=== PATIENT | female | born 1995 | race Two or more races ===

== ENCOUNTER 2016-09-12 21:41 | Emergency (ER) | payer MEDICAID | END 2016-09-13 | disposition home or self-care (01) | LOC: D.ER 21:41 | DX: S16.1XXA Strain of muscle, fascia and tendon at neck level, initial encounter (principal); V43.52XA Car driver injured in collision with other type car in traffic accident, initial encounter; Y93.89 Activity, other specified; Y92.410 Unspecified street and highway as the place of occurrence of the external cause ==

== ENCOUNTER 2016-09-18 20:26 | Emergency (ER) | payer MEDICAID ==
[2016-09-18 22:44] LABS: APPEARANCE CLOUDY (CLEAR); COLOR STRAW (YELLOW); HCG URINE NEGATIVE (NEGATIVE)
[2016-09-18 22:45] LABS: BACTERIA MODERATE /hpf (NONE SEEN); BILIRUBIN NEGATIVE (NEGATIVE); GLUCOSE NEGATIVE (NEGATIVE); KETONE NEGATIVE (NEGATIVE); LEUKOCYTE ESTERASE 2+ (NEGATIVE); MUCUS <1+ /lpf (NONE SEEN); NITRITE NEGATIVE (NEGATIVE); PROTEIN NEGATIVE (NEGATIVE); UROBILINOGEN NORMAL (NORMAL); WHITE CELLS - URINE >50 /hpf (0-5)
== END 2016-09-18 23:00 | disposition home or self-care (01) ==
LOC: D.ER 20:26
PROVIDERS: Emergency Medicine
DX: M54.5 Low back pain (principal); F17.200 Nicotine dependence, unspecified, uncomplicated

== ENCOUNTER 2016-11-22 01:04 | Emergency (ER) | payer MEDICAID ==
[2016-11-22 03:16] LABS: BASOPHILS 0.8 % (0-2); EOSINOPHILS 2.4 % (0-7); HEMATOCRIT 43.2 % (36.0-48.0); IMMATURE GRANULOCYTES 0.2 % (0-5); LYMPHOCYTES 30.2 % (15-50); MCH 30.9 pg (26.0-34.0); MCHC 34.7 g/dL (31.0-37.0); MCV 89.1 fL (80.0-100.0); MEAN PLATELET VOLUME 9.6 fL (7.4-10.4); MONOCYTES 10.3 % (2-11); NEUTROPHILS 56.1 % (40-80); PLATELET COUNT 342 10x3/uL (130-400); RBC 4.85 10x6/uL (4.00-5.40); RDW 12.6 % (11.5-14.5); WBC 11.8 10x3/uL (4.8-10.8)
[2016-11-22 03:22] LABS: CALC OSMOLALITY 280 mosm/kg (275-300); CALCIUM 9.4 mg/dL (8.5-10.1); CARBON DIOXIDE 27.6 mmol/L (21.0-32.0); CHLORIDE - SERUM 104 mmol/L (98-107); CREATININE - SERUM 0.8 mg/dL (0.6-1.3); GLUCOSE 116 mg/dL (74-106); POTASSIUM - SERUM 3.5 mmol/L (3.5-5.1); SODIUM 141 mmol/L (136-145); UREA NITROGEN 9 mg/dL (7-18); eGFR NON AFRICAN AMERICAN > 90 mL/min (90-120)
== END 2016-11-22 03:57 | disposition home or self-care (01) ==
LOC: D.ER 01:04
PROVIDERS: Family Medicine
DX: J06.9 Acute upper respiratory infection, unspecified (principal); R04.0 Epistaxis

== ENCOUNTER 2016-12-28 20:20 | Emergency (ER) | payer MEDICAID ==
[2016-12-28 22:25] LABS: BASOPHILS 0.9 % (0-2); EOSINOPHILS 2.7 % (0-7); HEMATOCRIT 39.8 % (36.0-48.0); HEMOGLOBIN 13.8 g/dL (12-16); IMMATURE GRANULOCYTES 0.1 % (0-5); LYMPHOCYTES 28.1 % (15-50); MCHC 34.7 g/dL (31.0-37.0); MCV 89.4 fL (80.0-100.0); MEAN PLATELET VOLUME 9.4 fL (7.4-10.4); MONOCYTES 7.7 % (2-11); NEUTROPHILS 60.5 % (40-80); PLATELET COUNT 345 10x3/uL (130-400); RBC 4.45 10x6/uL (4.00-5.40); RDW 12.4 % (11.5-14.5); WBC 12.4 10x3/uL (4.8-10.8)
[2016-12-28 22:42] LABS: ALBUMIN 3.7 g/dL (3.4-5.0); ALKALINE PHOSPHATASE 89 U/L (46-116); ALT (SGPT) 21 U/L (10-68); CALC OSMOLALITY 277 mosm/kg (275-300); CALCIUM 8.5 mg/dL (8.5-10.1); CARBON DIOXIDE 27.5 mmol/L (21.0-32.0); CHLORIDE - SERUM 104 mmol/L (98-107); CREATININE - SERUM 0.7 mg/dL (0.6-1.3); GLUCOSE 99 mg/dL (74-106); POTASSIUM - SERUM 3.4 mmol/L (3.5-5.1); PROTEIN - SERUM 7.1 g/dL (6.4-8.2); SODIUM 140 mmol/L (136-145); UREA NITROGEN 9 mg/dL (7-18); eGFR NON AFRICAN AMERICAN > 90 mL/min (90-120)
[2016-12-28 22:43] LABS: HCG SERUM NEGATIVE (NEGATIVE)
[2016-12-29 00:06] LABS: APPEARANCE HAZY (CLEAR); BILIRUBIN NEGATIVE (NEGATIVE); COLOR STRAW (YELLOW); GLUCOSE NEGATIVE (NEGATIVE); KETONE NEGATIVE (NEGATIVE); LEUKOCYTE ESTERASE 2+ (NEGATIVE); NITRITE NEGATIVE (NEGATIVE); PROTEIN TRACE mg/dL (NEGATIVE); SPECIFIC GRAVITY 1.005 (1.005-1.020); UROBILINOGEN NORMAL (NORMAL)
[2016-12-29 00:07] LABS: BACTERIA MODERATE /hpf (NONE SEEN); EPITHELIAL CELLS 0-5 /hpf (0-5); RED CELLS - URINE 0-5 /hpf (0-5)
== END 2016-12-29 00:45 | disposition home or self-care (01) ==
LOC: D.ER 20:20
PROVIDERS: Emergency Medicine
DX: N39.0 Urinary tract infection, site not specified (principal); F17.200 Nicotine dependence, unspecified, uncomplicated

== ENCOUNTER 2018-12-29 08:51 | Emergency (ER) | payer SELFPAY ==
[~2018-12-29] VITALS: Ht 168.9 cm; Wt 84.1 kg
[2018-12-29 08:58] VITALS: BP 125/83; Ht 168.9 cm; Wt 84.1 kg
[2018-12-29 09:25] LABS: BASOPHILS 2.2 % (0-2); EOSINOPHILS 7.3 % (0-7); HEMATOCRIT 44.1 % (36.0-48.0); HEMOGLOBIN 15.9 g/dL (12-16); IMMATURE GRANULOCYTES 0.4 % (0-5); LYMPHOCYTES 23.7 % (15-50); MCH 31.5 pg (26.0-34.0); MCHC 36.1 g/dL (31.0-37.0); MCV 87.3 fL (80.0-100.0); MEAN PLATELET VOLUME 9.2 fL (7.4-10.4); MONOCYTES 8.5 % (2-11); NEUTROPHILS 57.9 % (40-80); PLATELET COUNT 321 10x3/uL (130-400); RBC 5.05 10x6/uL (4.00-5.40); RDW 12.9 % (11.5-14.5); WBC 11.2 10x3/uL (4.8-10.8)
[2018-12-29 09:37] LABS: HCG SERUM NEGATIVE (NEGATIVE)
[2018-12-29 09:44] LABS: ALBUMIN 4.1 g/dL (3.4-5.0); ALKALINE PHOSPHATASE 98 U/L (46-116); ALT (SGPT) 41 U/L (10-68); AMYLASE - SERUM 33 U/L (25-115); BILIRUBIN - TOTAL 0.29 mg/dL (0.2-1.3); CALC OSMOLALITY 274 mosm/kg (275-300); CALCIUM 8.6 mg/dL (8.5-10.1); CARBON DIOXIDE 25.8 mmol/L (21.0-32.0); CHLORIDE - SERUM 104 mmol/L (98-107); CREATININE - SERUM 0.8 mg/dL (0.6-1.3); GLUCOSE 113 mg/dL (74-106); LIPASE 113 U/L (73-393); POTASSIUM - SERUM 3.4 mmol/L (3.5-5.1); PROTEIN - SERUM 8.2 g/dL (6.4-8.2); SODIUM 138 mmol/L (136-145); UREA NITROGEN 8 mg/dL (7-18); eGFR NON AFRICAN AMERICAN > 90 mL/min (90-120)
[2018-12-29 12:31] LABS: APPEARANCE CLOUDY (CLEAR); BILIRUBIN NEGATIVE (NEGATIVE); COLOR YELLOW (YELLOW); GLUCOSE NEGATIVE (NEGATIVE); KETONE NEGATIVE (NEGATIVE); NITRITE NEGATIVE (NEGATIVE); PROTEIN TRACE mg/dL (NEGATIVE); SPECIFIC GRAVITY 1.015 (1.005-1.020); UROBILINOGEN NORMAL (NORMAL)
[2018-12-29 12:34] LABS: BACTERIA MANY /hpf (NONE SEEN); EPITHELIAL CELLS 0-5 /hpf (0-5); MUCUS <1+ /lpf (NONE SEEN)
[2018-12-29] MEDS ORDERED: BACTRIM 400-801 TAB PO (12:38)
== END 2018-12-29 13:13 | disposition home or self-care (01) ==
LOC: D.ER 08:51
PROVIDERS: Family Medicine
DX: N39.0 Urinary tract infection, site not specified (principal); K80.20 Calculus of gallbladder without cholecystitis without obstruction

== ENCOUNTER 2019-03-15 23:15 | Emergency (ER) | payer SELFPAY ==
[~2019-03-15] VITALS: Ht 168.9 cm; Wt 84.1 kg
[~2019-03-15 23:15] MED LIST: BACTRIM 400-801 TAB PO
[2019-03-15 23:20] VITALS: Ht 168.9 cm; Wt 84.1 kg
[2019-03-15] MEDS ORDERED: AMOXICILLIN500 M1 PO (23:35)
[2019-03-15] MEDS ORDERED: ZITHROMAX500 MG PO (23:35)
[2019-03-15] MEDS ORDERED: MUCINEX DM ER1 EAC1 PO (23:35)
[2019-03-16 00:04] LABS: HCG URINE NEGATIVE (NEGATIVE)
[2019-03-16 00:05] LABS: APPEARANCE CLEAR (CLEAR); BILIRUBIN NEGATIVE (NEGATIVE); COLOR YELLOW (YELLOW); GLUCOSE NEGATIVE (NEGATIVE); KETONE NEGATIVE (NEGATIVE); NITRITE NEGATIVE (NEGATIVE); PROTEIN NEGATIVE (NEGATIVE); SPECIFIC GRAVITY 1.025 (1.005-1.020); UROBILINOGEN NORMAL (NORMAL)
[2019-03-16 00:06] LABS: BACTERIA FEW /hpf (NEGATIVE); EPITHELIAL CELLS 0-5 /hpf (0-5); RED CELLS - URINE 0-5 /hpf (0-5); WHITE CELLS - URINE 0-5 /hpf (NEGATIVE)
[2019-03-16 00:10] VITALS: BP 129/70
== END 2019-03-16 00:11 | disposition home or self-care (01) ==
LOC: D.ER 23:15
PROVIDERS: Family Medicine
DX: J40 Bronchitis, not specified as acute or chronic (principal); F17.210 Nicotine dependence, cigarettes, uncomplicated

== ENCOUNTER 2019-06-08 19:23 | Inpatient (IN) | payer SELFPAY ==
[~2019-06-08] VITALS: Ht 168.9 cm; Wt 88.6 kg
--- NOTE | ~2019-06-08 | OP ---
PATIENT NAME: VIGNESH JENKINS MEDICAL RECORD: [id number] :[birth year] LOCATION:D.MS [id number] ADMISSION DATE:06/09/19 SURGEON: GABBY RUSSO MD DATE OF OPERATION: 06/11/2019 PREOPERATIVE DIAGNOSIS: Symptomatic gallstones. POSTOPERATIVE DIAGNOSES: Symptomatic gallstones with hepatomegaly. PROCEDURES: 1. Laparoscopic cholecystectomy. 2. Intraoperative cholangiography without immediate surgeon interpretation. 3. A 14-gauge core needle liver biopsy. SURGEON: Gabby Russo MD BUS PERSON DISHWASHER: None. BLOOD LOSS: Minimal. ANESTHESIA: General. COMPLICATIONS: None. The risks, possible complications and alternatives to the procedure were explained to the patient. She elects to proceed. Discussion specifically included, but was not limited to, bleeding requiring emergency reoperation, infection, intestinal injury, common bile duct injury. OPERATIVE COURSE: The patient was conveyed to the operating room electively on 06/11/2019. General anesthesia was induced by the anesthesia staff. The abdomen was sterilely prepped and draped. A skin incision was accomplished in the left upper quadrant. Veress needle was inserted through the skin incision into the peritoneal cavity. CO2 insufflation was begun. Once a sufficient pneumoperitoneum had been achieved, a 5-mm trocar was inserted through an incision in the epigastrium. Another 5-mm trocar was inserted far laterally in the right upper quadrant. A 12-mm trocar was inserted through an incision at the umbilicus. During insertion of the Veress needle and all trocars, there appeared to have been no injury to the bowels, any intraperitoneal or retroperitoneal structures. An abdominal survey was undertaken. The liver appeared enlarged. The indication for liver biopsy was hepatomegaly. Under laparoscopic guidance, I percutaneously accessed the right upper quadrant utilizing a 14-gauge core biopsy device. Cores were obtained over the convexity of the liver. The biopsy sites were made hemostatic with electrocautery. I then grasped the gallbladder. I advanced a cholangiogram trocar. I punctured the fundus of the gallbladder. I aspirated bile. I then injected dye. Static cholangiographic images were obtained. These were sent to the radiologist for interpretation. I aspirated bile and removed the cholangiogram trocar. The gallbladder was grasped and retracted cephalad. The infundibulum was grasped and retracted laterally. Blunt dissection was begun in the triangle of Calot. One cystic artery and one cystic duct were identified. These were OPERATIVE REPORT [id number] VIGNESH JENKINS clipped multiply and divided between clips. The gallbladder was then excised from its bed in the liver. This was placed within a bag retrieval device and was withdrawn through the umbilical fascia defect. A 12-mm trocar was replaced and the abdomen reinsufflated. I irrigated and aspirated in the right upper quadrant. There was no bleeding even at low pressure of 8. The 12-mm trocar was removed. Utilizing the Ata-Erin suture closure device and 0 Vicryl sutures, I closed the fascia at the umbilicus. All trocars were removed and the abdomen desufflated. The skin incision around the trocars were infiltrated with Marcaine without epinephrine. The skin at the umbilicus was closed with interrupted 4-0 Vicryl Rapide sutures. The other skin incisions were closed with single intracuticular 3-0 Vicryls. Benzoin and Steri-Strips were applied. The patient was then extubated and conveyed to post-anesthesia care unit where she was in stable condition. She will be kept overnight and I will plan to dismiss her home in the morning. TRANSINT:[id number] Voice Confirmation ID: [id number] DOCUMENT ID: [id number] GABBY RUSSO MD CC: CHAITANYA CHAVEZ MD [id number] DICTATION DATE: 06/12/1945 PSYCHOMETRIC EXAMINER: 06/12/[address] [facility] [address] [place] [address]
[~2019-06-08 19:23] MED LIST changes: +AMOXICILLIN500 M1 PO; +MUCINEX DM ER1 EAC1 PO; +ZITHROMAX500 MG PO
[2019-06-08 20:07] LABS: BASOPHILS 1.4 % (0-2); EOSINOPHILS 7.9 % (0-7); HEMATOCRIT 43.1 % (36.0-48.0); IMMATURE GRANULOCYTES 0.2 % (0-5); LYMPHOCYTES 28.7 % (15-50); MCH 31.1 pg (26.0-34.0); MCHC 34.8 g/dL (31.0-37.0); MCV 89.2 fL (80.0-100.0); MEAN PLATELET VOLUME 9.1 fL (7.4-10.4); MONOCYTES 7.6 % (2-11); NEUTROPHILS 54.2 % (40-80); PLATELET COUNT 303 10x3/uL (130-400); RBC 4.83 10x6/uL (4.00-5.40); RDW 12.6 % (11.5-14.5); WBC 10.9 10x3/uL (4.8-10.8)
[2019-06-08 20:14] LABS: CALC OSMOLALITY 276 mosm/kg (275-300); CALCIUM 8.9 mg/dL (8.5-10.1); CARBON DIOXIDE 25.8 mmol/L (21.0-32.0); CHLORIDE - SERUM 103 mmol/L (98-107); CREATININE - SERUM 0.7 mg/dL (0.6-1.3); GLUCOSE 104 mg/dL (74-106); POTASSIUM - SERUM 3.8 mmol/L (3.5-5.1); SODIUM 139 mmol/L (136-145); UREA NITROGEN 11 mg/dL (7-18); eGFR NON AFRICAN AMERICAN > 90 mL/min (90-120)
[2019-06-08 20:22] LABS: ALKALINE PHOSPHATASE 108 U/L (46-116); ALT (SGPT) 35 U/L (10-68); AMYLASE - SERUM 35 U/L (25-115); BILIRUBIN - TOTAL 0.17 mg/dL (0.2-1.3); LIPASE 123 U/L (73-393); PROTEIN - SERUM 7.5 g/dL (6.4-8.2); TROPONIN-I < 0.017 ng/mL (0.000-0.060)
[2019-06-08 23:07] LABS: APPEARANCE CLEAR (CLEAR); BILIRUBIN NEGATIVE (NEGATIVE); COLOR YELLOW (YELLOW); GLUCOSE NEGATIVE (NEGATIVE); KETONE NEGATIVE (NEGATIVE); NITRITE NEGATIVE (NEGATIVE); PROTEIN NEGATIVE (NEGATIVE); UROBILINOGEN NORMAL (NORMAL)
[2019-06-08 23:10] LABS: HCG URINE NEGATIVE (NEGATIVE)
--- NOTE | 2019-06-09 02:00 | NUR ---
ARRIVED TO ROOM 2223 VIA WHEELCHAIR AND HOSPITAL STAFF. UP AD ILIANA. AMBULATES WITHOUT DIFFICULTY. COMPLAINTS OF SLIGHT PAIN TO ABDOMEN NOTED. ABLE TO SUBDUE PAIN WITH REST. ON CLEAR LIQUID DIET AT THIS TIME. IV TO RIGHT AC IS PATENT WITH FLUIDS INFUSING VIA PUMP PER ORDERS. ALERT AND ORIENTED. ABLE TO VOICE ALL NEEDS.
[2019-06-09 02:34] VITALS: BP 110/56; BMI 31.0
[2019-06-09 04:00] VITALS: BP 110/56
[2019-06-09 08:36] VITALS: BP 110/48
[2019-06-09 09:20] LABS: BASOPHILS 1.3 % (0-2); EOSINOPHILS 7.2 % (0-7); HEMOGLOBIN 14.8 g/dL (12-16); IMMATURE GRANULOCYTES 0.3 % (0-5); LYMPHOCYTES 33.3 % (15-50); MCH 30.8 pg (26.0-34.0); MCHC 34.4 g/dL (31.0-37.0); MCV 89.4 fL (80.0-100.0); MEAN PLATELET VOLUME 9.2 fL (7.4-10.4); NEUTROPHILS 49.9 % (40-80); PLATELET COUNT 279 10x3/uL (130-400); RBC 4.81 10x6/uL (4.00-5.40); RDW 12.8 % (11.5-14.5); WBC 10.3 10x3/uL (4.8-10.8)
[2019-06-09 09:28] LABS: CALC OSMOLALITY 278 mosm/kg (275-300); CALCIUM 8.4 mg/dL (8.5-10.1); CARBON DIOXIDE 23.4 mmol/L (21.0-32.0); CHLORIDE - SERUM 106 mmol/L (98-107); CREATININE - SERUM 0.7 mg/dL (0.6-1.3); GLUCOSE 135 mg/dL (74-106); POTASSIUM - SERUM 3.7 mmol/L (3.5-5.1); SODIUM 139 mmol/L (136-145); UREA NITROGEN 9 mg/dL (7-18); eGFR NON AFRICAN AMERICAN > 90 mL/min (90-120)
--- NOTE | 2019-06-09 10:36 | NUR ---
I have reviewed this patient and I concur with the Shift Assessment completed by the Licensed Practical Nurse today this shift.
--- NOTE | 2019-06-09 12:28 | NUR ---
PT MOTHER AT DESK WANTING TO SPEAK WITH NURSE PRACTITIONER AND DOCTOR, ADVISED THEY ARE STILL MAKING THEIR ROUNDS AND WILL BE IN PITA. PT MOTHER VERY UNDERSTANDING. CONTINUE WITH PLAN OF CARE
[2019-06-09 13:31] VITALS: BP 99/50
--- NOTE | 2019-06-09 19:15 | NUR ---
PATIENT ALERT AND ORIENTED. PATIENT HAS SEVERAL VISITORS IN ROOM. DENIES NEEDS AT THIS TIME. DENIES NAUSEA AND VOMITTING AT THIS TIME. DENIES NEEDS. HAS SALINE LOCKED IV TO THE RIGHT AC. VERBALIZES UNDERSTANDING OF NPO STATUS AT MIDNIGHT. CALL LIGHT IN REACH. CPOC.
[2019-06-09 20:00] VITALS: BP 100/61
--- NOTE | 2019-06-09 21:00 | NUR ---
FLUSHED IV. IV IS PATENT. DENIES FURTHER NEEDS.
[2019-06-10] VITALS: BP 113/78
--- NOTE | 2019-06-10 01:54 | NUR ---
RESTING WITH EYES CLOSED. UNLABORED RESPIRATIONS. CPOC.
--- NOTE | 2019-06-10 02:44 | NUR ---
I have reviewed this patient and I concur with the Shift Assessment completed by the Licensed Practical Nurse today this shift.
[2019-06-10 04:00] VITALS: BP 103/52
[2019-06-10 06:17] LABS: BASOPHILS 0.9 % (0-2); EOSINOPHILS 6.1 % (0-7); HEMATOCRIT 43.1 % (36.0-48.0); HEMOGLOBIN 14.8 g/dL (12-16); IMMATURE GRANULOCYTES 0.2 % (0-5); LYMPHOCYTES 31.1 % (15-50); MCH 30.6 pg (26.0-34.0); MCHC 34.3 g/dL (31.0-37.0); MCV 89.2 fL (80.0-100.0); MEAN PLATELET VOLUME 9.5 fL (7.4-10.4); MONOCYTES 7.2 % (2-11); NEUTROPHILS 54.5 % (40-80); PLATELET COUNT 294 10x3/uL (130-400); RBC 4.83 10x6/uL (4.00-5.40); RDW 12.6 % (11.5-14.5); WBC 11.2 10x3/uL (4.8-10.8)
[2019-06-10 06:48] LABS: CALC OSMOLALITY 280 mosm/kg (275-300); CALCIUM 8.6 mg/dL (8.5-10.1); CARBON DIOXIDE 25.1 mmol/L (21.0-32.0); CHLORIDE - SERUM 107 mmol/L (98-107); CREATININE - SERUM 0.6 mg/dL (0.6-1.3); GLUCOSE 93 mg/dL (74-106); POTASSIUM - SERUM 3.4 mmol/L (3.5-5.1); SODIUM 142 mmol/L (136-145); UREA NITROGEN 7 mg/dL (7-18); eGFR NON AFRICAN AMERICAN > 90 mL/min (90-120)
--- NOTE | 2019-06-10 07:43 | NUR ---
ALERT AND ORIENTED. LUNGS CLEAR BILATERALLY. HEART SOUNDS S1 AND S2 HEARD IN ALL GAVIN. BOWEL SOUNDS ACTIVE X 4. SKIN INTACT WITHOUT REDNESS. NPO FOR PIPIDA SCAN. STATES HUNGRY BUT DENIES NEEDS. BED LOW. CALL ODONNELL AND PERSONAL ITEMS IN REACH. WILL CONTINUE TO MONITOR.
--- NOTE | 2019-06-10 08:13 | NUR ---
PATIENT TAKEN FOR CT.
--- NOTE | 2019-06-10 10:25 | NUR ---
ONE TIME DOSE MORPHINE 2MG GIVEN DURING PIPIDA SCAN PER MD ORDER.
--- NOTE | 2019-06-10 11:57 | NUR ---
SPOKE WITH DR RUSSO WHO STATES OK TO PUT IN ORDER FOR LOW FAT DIET.
[2019-06-10 12:06] VITALS: BP 111/67
--- NOTE | 2019-06-10 13:28 | NUR ---
SITTING IN CHAIR AT BEDSIDE. MOM IN ROOM. DENIES NEEDS. WILL CONTINUE TO MONITOR.
--- NOTE | 2019-06-10 13:45 | NUR ---
IV SITE RED AND IRRITATED TO RIGHT AC. REMOVED PER PATIENT REQUEST. REQUESTING TO RESITE LATER TODAY.
--- NOTE | 2019-06-10 17:11 | NUR ---
SITTING IN CHAIR AT BEDSIDE. DENIES NEEDS. WILL CONTINUE TO MONITOR.
--- NOTE | 2019-06-10 18:06 | NUR ---
IV SITED TO LEFT HAND AFTER THREE ATTEMPTS BY TREVOR LICEA.
--- NOTE | 2019-06-10 19:05 | NUR ---
PATIENT IS UP AND WALKING AROUND. NO S/S OF DISTRESS. NO C/O AT THIS TIME. PATIENT HAS L HAND SALINE LOC FOR SURGERY TOMORROW. PATIENT IS HAVING A LAP HAYDEN TOMORROW. CONSENTS WERE CHECKED. CALL LIGHT IN PLACE. WILL CONTINUE TO MONITOR.
[2019-06-10 20:00] VITALS: BP 121/60
[2019-06-10 20:04] VITALS: Ht 168.9 cm; Wt 88.6 kg
[2019-06-11] VITALS: BP 109/60
--- NOTE | 2019-06-11 01:35 | NUR ---
PATIENT IV WAS TAKEN OUT BECAUSE "IT WAS BURNING REALLY BAD." ROMELIA RESITED IN THE L WRIST. PATENT. CALL LIGHT IN PLACE. WILL CONTINUE TO MONITOR.
--- NOTE | 2019-06-11 03:10 | NUR ---
I have reviewed this patient and I concur with the Shift Assessment completed by the Licensed Practical Nurse today this shift.
[2019-06-11 04:00] VITALS: BP 110/64
[2019-06-11 06:23] LABS: BASOPHILS 1.2 % (0-2); EOSINOPHILS 7.3 % (0-7); HEMATOCRIT 43.1 % (36.0-48.0); IMMATURE GRANULOCYTES 0.3 % (0-5); LYMPHOCYTES 30.7 % (15-50); MCH 31.1 pg (26.0-34.0); MCHC 34.8 g/dL (31.0-37.0); MCV 89.2 fL (80.0-100.0); MEAN PLATELET VOLUME 9.6 fL (7.4-10.4); MONOCYTES 8.8 % (2-11); NEUTROPHILS 51.7 % (40-80); PLATELET COUNT 314 10x3/uL (130-400); RBC 4.83 10x6/uL (4.00-5.40); RDW 12.6 % (11.5-14.5); WBC 11.2 10x3/uL (4.8-10.8)
[2019-06-11 06:30] LABS: CALC OSMOLALITY 278 mosm/kg (275-300); CALCIUM 8.7 mg/dL (8.5-10.1); CARBON DIOXIDE 25.1 mmol/L (21.0-32.0); CHLORIDE - SERUM 107 mmol/L (98-107); CREATININE - SERUM 0.6 mg/dL (0.6-1.3); GLUCOSE 97 mg/dL (74-106); POTASSIUM - SERUM 3.8 mmol/L (3.5-5.1); SODIUM 141 mmol/L (136-145); UREA NITROGEN 8 mg/dL (7-18); eGFR NON AFRICAN AMERICAN > 90 mL/min (90-120)
--- NOTE | 2019-06-11 07:01 | NUR ---
PT RESTING PEACEFULLY, BREATHS EVEN REUGLAR AND UNLABORED. NO SIGNS OR SYMPTOMS OF ACUTE DISTRESS AT THIS TIME. CL IN REACH, SRX2.
[2019-06-11 08:11] VITALS: BP 103/56
--- NOTE | 2019-06-11 10:01 | NUR ---
PT AWAKE AND ORIENTED, STATES NO PAIN AT THIS TIME. ANXIOUS TO HAVE URGERY OVER WITH. NO COMPALITNS/CONCERNS, ALL QUESTIONS ANSWERED TO THE BEST OF Delmy SANCHEZ. CL IN REACH, SRX2. NO FAMILY AT BEDSIDE, THOUGH SISTER CALLED AND STATED SHE'D BE UP SOON.
--- NOTE | 2019-06-11 10:47 | NUR ---
I have reviewed this patient and I concur with the Shift Assessment completed by the Licensed Practical Nurse today this shift.
--- NOTE | 2019-06-11 14:01 | NUR ---
TP AWAKE AND ORIENTED, WAITING TO BE TAKEN TO SURGERY. C/O WAIT TIME BUT IS OTHERWISE COMPLACENT. NO FAMILY AT BEDSIDE. ALL QUESTIONS ANSWERED TO THE BEST OF MY ABILITY. CL IN REACH, SRX2
[2019-06-11 14:04] VITALS: BP 107/59
[2019-06-11 17:33] VITALS: BP 119/74
--- NOTE | 2019-06-11 18:30 | NUR ---
PT BACK IN ROOM, CRYING FROM PAIN, HAVE INFORMED HER NOTHING IS AVALIABLE YET D/T THE AMOUTN OF MEDS SHE GOT IN [place] BUT THAT SOON IT WAS AVALIABLE I'D BRING IT. SHE STATES HER UNDERSTANDING, SAYS SHE STILL FEELS REALLY DIZZY FROM THE PAIN MEDICATION. MOTHER/FATHER AT BEDSIDE. CL IN REACH, SRX2.
--- NOTE | 2019-06-11 19:30 | NUR ---
IN BED. ALERT AND ORIENTED. STATES SHE IS FEELING MORE CLEAR THOUGHTS AT THIS TIME. WOULD LIKE TO ATTEMPT TO AMBULATE THIS SHIFT.
--- NOTE | 2019-06-11 21:30 | NUR ---
ASSISTED TIMES 1 STAFF TO AMBULATE THROUGHOUT UNIT. NO S/S OF ACUTE DISTRESS. GAIT IS STEADY AND STRONG. ABLE TO TRANSFER WITH SLIGHT DISCOMFORT. DOES COMPLAIN OF PAIN STEADILY GETTING STRONGER. ASSOCIATE PROFESSOR OF PHYSICS WILL BE INITIATED.
[2019-06-11 21:35] VITALS: BP 127/59
[2019-06-12 00:54] VITALS: BP 111/56
[2019-06-12 05:16] VITALS: BP 120/59
[2019-06-12 06:37] LABS: CALC OSMOLALITY 272 mosm/kg (275-300); CALCIUM 8.5 mg/dL (8.5-10.1); CHLORIDE - SERUM 103 mmol/L (98-107); CREATININE - SERUM 0.7 mg/dL (0.6-1.3); GLUCOSE 111 mg/dL (74-106); SODIUM 137 mmol/L (136-145); UREA NITROGEN 7 mg/dL (7-18); eGFR NON AFRICAN AMERICAN > 90 mL/min (90-120)
[2019-06-12 06:38] LABS: POTASSIUM - SERUM 4.5 mmol/L (3.5-5.1)
[2019-06-12 06:46] LABS: BASOPHILS 0.1 % (0-2); EOSINOPHILS 0.3 % (0-7); HEMATOCRIT 42.1 % (36.0-48.0); HEMOGLOBIN 14.4 g/dL (12-16); IMMATURE GRANULOCYTES 0.2 % (0-5); LYMPHOCYTES 7.9 % (15-50); MCH 30.7 pg (26.0-34.0); MCHC 34.2 g/dL (31.0-37.0); MCV 89.8 fL (80.0-100.0); MEAN PLATELET VOLUME 9.6 fL (7.4-10.4); MONOCYTES 8.7 % (2-11); NEUTROPHILS 82.8 % (40-80); PLATELET COUNT 324 10x3/uL (130-400); RBC 4.69 10x6/uL (4.00-5.40); RDW 12.6 % (11.5-14.5)
[2019-06-12 06:47] LABS: WBC 16.1 10x3/uL (4.8-10.8)
--- NOTE | 2019-06-12 07:49 | NUR ---
ALERT AND ORIENTED. LUNGS CLEAR BILATERALLY. HEART SOUNDS S1 AND S2 HEARD IN ALL GAVIN. BOWEL SOUNDS ACTIVE X 4. LAP SITES X 4 C/D/I. IV TO LEFT HAND PATENT WITHOUT REDNESS. DENIES NEEDS. BED LOW. CALL ODONNELL AND PERSONAL ITEMS IN REACH. WILL CONTINUE TO MONITOR.
[2019-06-12 07:54] VITALS: BP 119/58
[2019-06-12] MEDS ORDERED: NICODERM C1 PATCH .1 TRANSDERM (10:06)
--- NOTE | 2019-06-12 12:35 | NUR ---
RESTING IN BED. DENIES NEEDS. WILL CONTINUE TO MONITOR.
--- NOTE | 2019-06-12 14:15 | MORECARE ---
CASE MANAGEMENT DISCHARGE SUMMARY PATIENT: VIGNESH KEANE UNIT: [id number] ADM DATE: 06/09/19 AGE: 23 : [birth year] SEX: F ROOM/BED: D.2223 AUTHOR: SERA,DOC PHYSICIAN: REFERRING PHYSICIAN: CHAITANYA CHAVEZ MD DATE OF SERVICE: 06/12/19 Discharge Plan Patient Name: VIGNESH KEANE Facility: [facility]:[place] : 1995 Planned Disposition: Home Anticipated Discharge Date: 06/12/19 Discharge Date: Expected LOS: 3 Initial Reviewer: [email or web address] Initial Review Date: 06/12/2019 Generated: 06/12/19 3:15 pm Comments DCP- Discharge Planning Updated by [email or web address]: Radha Gonzales on 06/12/19 1:[address] Patient Name: VIGNESH KEANE Admission Status: ER Accout number: [id number] Admission Date: 06-09-2019 : 1995 Admission Diagnosis: Attending: CHAITANYA CHAVEZ Current LOS: 3 Anticipated DC Date: 06-12-2019 Planned Disposition: Home Primary Insurance: UNINSURED DISCOUNT PLAN Discharge Planning Comments: CM met with patient to complete initial dc planning assessment. CM educated patient on the CM role and verbal consent given by patient to complete assessment. Patient lives at home with her mother and her siblings. At discharge patient plans to return and feels this is a safe discharge. CM discussed availability of home health, rehab services, and medical equipment. Patient denied known discharge needs at this time. CM will continue to follow and will assist as needed with dc plans/needs. Therapy Manager: Radha Gonzales DCPIA - Discharge Planning Initial Assessment Updated by [email or web address]: Radha Gonzales on 06/12/19 2:01 pm * Is the patient Alert and Oriented? Yes * How many steps to enter\exit or inside your home? 4/0 * PCP Dr. Chavez * Pharmacy [facility] on [address] * Preadmission Environment Home with Family * ADLs Independent * Equipment None * List name and contact numbers for known caregivers / representatives who currently or will assist patient after discharge: Miracle Keane - mother - [phone] * Verbal permission to speak to the caregivers and representatives has been obtained from the patient. Yes * Community resources currently utilized None * Additional services required to return to the preadmission environment? No * Can the patient safely return to the preadmission environment? Yes * Has this patient been hospitalized within the prior 30 days at any hospital? No Patient Name: VIGNESH KEANE Page [id number] at 1415 All edits/amendments must be made on the electronic document DICTATION DATE: 06/12/191414 PASTER HAT LINING: KAMLA 06/12/19 1415 RPT#: [id number] DC DATE: STATUS: ADM IN [facility] [address] [place] [address] END OF REPORT
--- NOTE | 2019-06-12 15:24 | NUR ---
SWITCH CREW SUPERVISOR DC FOR DC HOME. SYRINGE EMPTY.
[2019-06-12] MEDS ORDERED: HYDROCODON-ACE1 EAC7 PO (15:26)
[2019-06-12] MEDS ORDERED: COLACE100 MG PO (15:27)
--- NOTE | 2019-06-12 15:43 | NUR ---
SPOKE WITH HALEY SOLIS ABOUT PATIENT REQUESTING PO PAIN MEDICATION. STATES GIVE NORCO 5/325MG NOW X 1.
--- NOTE | 2019-06-12 16:03 | NUR ---
DISCHARGE EDUCATION PROVIDED BOTH WRITTEN AND VERBAL. VERBALIZED UNDERSTANDING. DENIES FURTHER QUESTIONS. WORK EXCUSE PROVIDED PER REQUEST. PATIENT DENIES FURTHER NEEDS. IV REMOVED FROM LEFT HAND WITH TIP INTACT. WAITIN FOR STEP MOM TO KETTLE COORDINATOR FROM HOSPITAL.
--- NOTE | 2019-06-12 16:56 | NUR ---
PATIENT DISCHARGED HOME WITH STEP MOM WITH ALL BELONGINGS.
--- NOTE | 2019-06-13 18:16 | MORECARE ---
CASE MANAGEMENT DISCHARGE SUMMARY PATIENT: VIGNESH KEANE UNIT: [id number] ADM DATE: 06/09/19 AGE: 23 : [birth year] SEX: F ROOM/BED: D.2223 AUTHOR: SERA,DOC PHYSICIAN: REFERRING PHYSICIAN: CHAITANYA CHAVEZ MD DATE OF SERVICE: 06/13/19 Discharge Plan Patient Name: VIGNESH KEANE Facility: [facility]:[place] : 1995 Planned Disposition: Home Anticipated Discharge Date: 06/12/19 Discharge Date: 06/12/2019 Expected LOS: 3 Initial Reviewer: [email or web address] Initial Review Date: 06/12/2019 Generated: 06/13/19 7:16 pm Comments DCP- Discharge Planning Updated by [email or web address]: Radha Gonzales on 06/12/19 1:[address] Patient Name: VIGNESH KEANE Admission Status: ER Accout number: [id number] Admission Date: 06-09-2019 : 1995 Admission Diagnosis: Attending: CHAITANYA CHAVEZ Current LOS: 3 Anticipated DC Date: 06-12-2019 Planned Disposition: Home Primary Insurance: UNINSURED DISCOUNT PLAN Discharge Planning Comments: CM met with patient to complete initial dc planning assessment. CM educated patient on the CM role and verbal consent given by patient to complete assessment. Patient lives at home with her mother and her siblings. At discharge patient plans to return and feels this is a safe discharge. CM discussed availability of home health, rehab services, and medical equipment. Patient denied known discharge needs at this time. CM will continue to follow and will assist as needed with dc plans/needs. Tubular Stock Glass Bulb Machine Former: Radha Gonzales DCPIA - Discharge Planning Initial Assessment Updated by [email or web address]: Radha Gonzales on 06/12/19 2:01 pm * Is the patient Alert and Oriented? Yes * How many steps to enter\exit or inside your home? 4/0 * PCP Dr. Chavez * Pharmacy [facility] on [address] * Preadmission Environment Home with Family * ADLs Independent * Equipment None * List name and contact numbers for known caregivers / representatives who currently or will assist patient after discharge: [facility] - [phone] * Verbal permission to speak to the caregivers and representatives has been obtained from the patient. Yes * Community resources currently utilized None * Additional services required to return to the preadmission environment? No * Can the patient safely return to the preadmission environment? Yes * Has this patient been hospitalized within the prior 30 days at any hospital? No Last DP export: 06/12/19 1:15 pm Patient Name: VIGNESH KEANE Page [phone] at 1816 All edits/amendments must be made on the electronic document DICTATION DATE: 06/13/191815 OPERATING ROOM TECH: KAMLA 06/13/191815 RPT#: [id number] DC DATE:06/12/19 STATUS: DIS IN [facility] [address] [place] [address] END OF REPORT
== END 2019-06-12 16:57 | disposition home or self-care (01) | DRG 419 ==
LOC: D.ER 19:23 → D.MS 06-09 01:41 → OBSVTIME 06-09 01:41 → D.ER 06-09 01:58 → D.MS 06-09 15:54
PROVIDERS: Emergency Medicine; Family Medicine; Surgery; ADMIT Family Medicine; ATTEND Family Medicine
PROC: 0FB04ZX Excision of Liver, Percutaneous Endoscopic Approach, Diagnostic (ICD-10-PCS; 2019-06-11)
PROC: BF101ZZ Fluoroscopy of Bile Ducts using Low Osmolar Contrast (ICD-10-PCS; 2019-06-11)
PROC: 0FT44ZZ Resection of Gallbladder, Percutaneous Endoscopic Approach (ICD-10-PCS; principal; 2019-06-11 14:45)
DX: K80.20 Calculus of gallbladder without cholecystitis without obstruction (principal); N28.9 Disorder of kidney and ureter, unspecified; F17.210 Nicotine dependence, cigarettes, uncomplicated; R16.0 Hepatomegaly, not elsewhere classified